=== PATIENT | male | born 1975 | race Caucasian/White ===

== ENCOUNTER 2021-09-20 03:00 | Emergency (ER) | payer OTHER, BC | END 2021-09-20 03:40 | disposition left against medical advice (07) | LOC: MADERS 03:00 | DX: M25.572 Pain in left ankle and joints of left foot (principal); I10 Essential (primary) hypertension; E11.9 Type 2 diabetes mellitus without complications; X50.1XXA Overexertion from prolonged static or awkward postures, initial encounter; Y92.69 Other specified industrial and construction area as the place of occurrence of the external cause; Z79.4 Long term (current) use of insulin; Z79.899 Other long term (current) drug therapy | CPT/HCPCS: 99283 ==